=== PATIENT | male | born 1990 | race Caucasian/White ===

== ENCOUNTER 2016-12-27 09:37 | Emergency (ER) | payer MEDICAID ==
[2016-12-27] MEDS ORDERED: NS 1,000 ML IV ONE ×2 (09:51→09:52)
[2016-12-27] MEDS ORDERED: ONDANSETRON 4 MG/2 ML VIAL IVP ONE (09:51)
--- NOTE | 2016-12-27 09:53 | EDPHY ---
H & P Stated Complaint: n/v/d since yesterday Time Seen by Provider: 12/27/16 09:45 HPI/ROS: Chief Complaint: Nausea vomiting diarrhea, dehydration HPI: 26-year-old male presenting with onset of nausea vomiting and diarrhea yesterday afternoon. He has not been able to keep any fluids down. Has not had any abdominal pain. Is concerned that he is getting dehydrated. No fevers or chills. No chest pain shortness of breath. No other ill contacts. ROS: 10 point Review of Systems is negative except as noted in the HPI. PMH: Depression Medications: Effexor Allergies: No known drug allergies Social History: No smoking, occasional alcohol, occasional marijuana Family History: non-contributory Physical Exam: Gen: Awake, Alert, No Distress HEENT: Nose: no rhinorrhea Eyes: PERRLA, EOMI Mouth: Dry mucosa Neck: Supple, no JVD Chest: nontender, lungs clear to auscultation Heart: S1, S2 normal, no murmur Abd: Soft, non-tender, no guarding Back: no CVA tenderness, no midline tenderness Ext: no edema, non-tender Skin: no rash Neuro: CN II-XII intact, Sensation grossly intact, Strength 5/5 in bilateral upper and lower extremities - Personal History Current Tetanus/Diphtheria Vaccine: Yes - Medical/Surgical History Hx Asthma: No Hx Chronic Respiratory Disease: No Hx Diabetes: No Hx Cardiac Disease: No Hx Renal Disease: No Hx Cirrhosis: No Hx Alcoholism: No Hx HIV/AIDS: No Hx Splenectomy or Spleen Trauma: No Other PMH: denies - Social History Smoking Status: Never smoked Constitutional: Initial Vital Signs Temperature (C) 36.8 C 12/27/16 09:40 Heart Rate 78 12/27/16 09:40 Respiratory Rate 16 12/27/16 09:40 Blood Pressure 145/79 H 12/27/16 09:40 O2 Sat (%) 94 12/27/16 09:40 O2 Delivery Mode Room Air Allergies/Adverse Reactions: No Known Allergies Allergy (Unverified 12/27/16 09:40) Home Medications: Medication Instructions Recorded Effexor 12/27/16 Medical Decision Making ED Course/Re-evaluation: 26-year-old with dehydration secondary to a gastroenteritis. He has a soft benign abdomen. Will give him IV fluids and antiemetics. Reassess - Data Points Medications Given: Discontinued Medications Sodium Chloride (Ns) 1,000 mls @ 0 mls/hr IV ONCE ONE PRN Reason: Wide Open Stop: 12/27/16 09:52 Last Admin: 12/27/16 10:32 Dose: 1,000 mls Sodium Chloride (Ns) 1,000 mls @ 0 mls/hr IV ONCE ONE PRN Reason: Wide Open Stop: 12/27/16 09:53 Last Admin: 12/27/16 10:05 Dose: 1,000 mls Ondansetron HCl (Zofran) 4 mg IVP EDNOW ONE Stop: 12/27/16 09:52 Last Admin: 12/27/16 10:33 Dose: Not Given Departure - Departure Disposition: Home, Routine, Self-Care Clinical Impression: Acute gastroenteritis, Dehydration Condition: Good Instructions: Dehydration (ED), Gastroenteritis (ED) Additional Instructions: Follow up with primary care physician in 3-4 days if symptoms are not improving. Patient to drink plenty of clear liquids, avoid dairy products. You may take ondansetron as needed for nausea and vomiting. Return to the emergency department for increasing abdominal pain, uncontrolled vomiting, fevers, chills, or any other concerns. Referrals: Beverly Hurst, PAC [Primary Care Provider] - As per Instructions
[2016-12-27 11:06] VITALS: BP 157/85; PULSE 60; RESP 18; TEMP 97.5; O2SAT 95
== END 2016-12-27 11:25 | disposition home or self-care (01) ==
DX: K52.9 Noninfective gastroenteritis and colitis, unspecified (principal); E86.0 Dehydration

== ENCOUNTER 2017-06-22 15:06 | Emergency (ER) | payer MEDICAID ==
--- NOTE | 2017-06-22 15:43 | EDPHY ---
H & P Time Seen by Provider: 06/22/17 15:17 HPI/ROS: 26-year-old male presents complaining of crippling fatigue over the last 2 days , and today began to have lower back pain. He denies fever or chills. He states he has been exposed to mono, however he denies sore throat or swollen glands. He denies cough . He has a history of eczema however he denies current rash. No difficulty urinating, no dysuria, no penile discharge. He does admit to drinking more than 5 alcoholic drinks per day. Review of systems As per HPI General no fever no chills no weakness, positive fatigue HEENT no eye pain no eye discharge. No eye redness, no sore throat Respiratory no cough, no shortness of breath Cardiac no chest pain, no peripheral edema GI no abdominal pain, no diarrhea, no constipation, no nausea, no vomiting no flank pain, no hematuria, no dysuria Musculoskeletal positive myalgias, no joint pain Heme no easy bruising, no easy bleeding Endo no polyuria, no polydipsia Skin no rashes, no pruritus Neuro no syncope, no dizziness, no headaches Psych is no suicidal ideation, no homicidal ideation Past Medical/Surgical History: Heavy alcohol use Social History: Positive alcohol use, positive marijuana Smoking Status: Never smoked Physical Exam: 26-year-old male vital signs stable alert and oriented no acute distress nontoxic appearance afebrile HEENT atraumatic normocephalic, extraocular muscles intact, anicteric Oropharynx negative for erythema negative exudate, tolerating her own secretions Neck supple no meningismus, no adenopathy Lungs clear to auscultation bilaterally Heart regular rate and rhythm without murmur rub or gallop Abdomen nondistended normoactive bowel sounds soft nontender Back positive bilateral CVA tenderness, right greater than left CVA tenderness, no step-offs, no spinal tenderness Extremities no cyanosis clubbing or edema Neuro alert and oriented, no focal deficits Skin-no rash Constitutional: Initial Vital Signs Temperature (C) 37.0 C 06/22/17 15:17 Heart Rate 89 06/22/17 15:17 Respiratory Rate 18 06/22/17 15:17 Blood Pressure 129/94 H 06/22/17 15:17 O2 Sat (%) 96 06/22/17 15:17 O2 Delivery Mode Room Air Allergies/Adverse Reactions: No Known Allergies Allergy (Verified 06/22/17 15:17) Home Medications: Medication Instructions Recorded NK [No Known Home Meds] 06/22/17 Medical Decision Making ED Course/Re-evaluation: Patient seen and evaluated for fatigue, muscle pain of 2 days duration. Labs CPK normal Magnesium normal CMP normal CBC mildly elevated WBC with a normal differential Hemoglobin hematocrit platelets all within normal limits Monospot negative Patient given 1 L normal saline Impression Myalgias with fatigue of unknown etiology Possible early viral syndrome Plan Rest, drink plenty liquids, ibuprofen or acetaminophen as needed for pain Follow-up with your primary care physician Recommend cutting back on alcohol intake - Data Points Laboratory Results: Laboratory Results 06/22/17 15:50 06/22/17 15:50 06/22/17 06/22/17 06/22/17 16:29 16:00 15:50 WBC RBC Hgb Hct MCV MCH MCHC RDW Plt Count MPV Neut % (Auto) Lymph % (Auto) Chester % (Auto) Eos % (Auto) Baso % (Auto) Nucleat RBC Rel Count Absolute Neuts (auto) Absolute Lymphs (auto) Absolute Monos (auto) Absolute Eos (auto) Absolute Basos (auto) Absolute Nucleated RBC Immature Gran % Immature Gran # Sodium Potassium Chloride Carbon Dioxide Anion Gap BUN Creatinine Estimated GFR Glucose Calcium Magnesium 1.6 mg/dL mg/dL (1.6-2.3) Total Bilirubin AST ALT Alkaline Phosphatase Creatine Kinase Total Protein Albumin Urine Color YELLOW Urine Appearance CLEAR Urine pH 6.0 (5.0-7.5) Ur Specific [place] <= 1.005 (1.002-1.030) Urine Protein NEGATIVE (NEGATIVE) Urine Ketones NEGATIVE (NEGATIVE) Urine Blood NEGATIVE (NEGATIVE) Urine Nitrate NEGATIVE (NEGATIVE) Urine Bilirubin NEGATIVE (NEGATIVE) Urine Urobilinogen 0.2 EU EU (0.2-1.0) Ur Leukocyte Esterase NEGATIVE (NEGATIVE) Urine Glucose NEGATIVE (NEGATIVE) Monoscreen NEGATIVE (NEGATIVE) 06/22/17 06/22/17 15:50 15:50 WBC 13.21 10^3/uL H 10^3/uL (3.80-9.50) RBC 5.35 10^6/uL 10^6/uL (4.40-6.38) Hgb 16.9 g/dL g/dL (13.7-17.5) Hct 46.7 % % (40.0-51.0) MCV 87.3 fL fL (81.5-99.8) MCH 31.6 pg pg (27.9-34.1) MCHC 36.2 g/dL g/dL (32.4-36.7) RDW 12.3 % % (11.5-15.2) Plt Count 336 10^3/uL 10^3/uL (150-400) MPV 9.9 fL fL (8.7-11.7) Neut % (Auto) 68.2 % % (39.3-74.2) Lymph % (Auto) 22.2 % % (15.0-45.0) Chester % (Auto) 8.2 % % (4.5-13.0) Eos % (Auto) 0.5 % L % (0.6-7.6) Baso % (Auto) 0.5 % % (0.3-1.7) Nucleat RBC Rel Count 0.0 % % (0.0-0.2) Absolute Neuts (auto) 9.01 10^3/uL H 10^3/uL (1.70-6.50) Absolute Lymphs (auto) 2.93 10^3/uL 10^3/uL (1.00-3.00) Absolute Monos (auto) 1.08 10^3/uL H 10^3/uL (0.30-0.80) Absolute Eos (auto) 0.07 10^3/uL 10^3/uL (0.03-0.40) Absolute Basos (auto) 0.07 10^3/uL 10^3/uL (0.02-0.10) Absolute Nucleated RBC 0.00 10^3/uL 10^3/uL (0-0.01) Immature Gran % 0.4 % % (0.0-1.1) Immature Gran # 0.05 10^3/uL 10^3/uL (0.00-0.10) Sodium 139 mEq/L mEq/L (134-144) Potassium 3.9 mEq/L mEq/L (3.5-5.2) Chloride 101 mEq/L mEq/L (97-110) Carbon Dioxide 22 mEq/l mEq/l (22-31) Anion Gap 16 mEq/L mEq/L (8-16) BUN 12 mg/dL mg/dL (7-23) Creatinine 1.0 mg/dL mg/dL (0.7-1.3) Estimated GFR > 60 Glucose 110 mg/dL H mg/dL (70-100) Calcium 10.3 mg/dL mg/dL (8.5-10.4) Magnesium Total Bilirubin 1.0 mg/dL mg/dL (0.1-1.4) AST 42 IU/L IU/L (17-59) ALT 70 IU/L IU/L (21-72) Alkaline Phosphatase 57 IU/L IU/L (38-126) Creatine Kinase 101 IU/L IU/L (0-224) Total Protein 8.1 g/dL g/dL (6.3-8.2) Albumin 4.9 g/dL g/dL (3.5-5.0) Urine Color Urine Appearance Urine pH Ur Specific [place] Urine Protein Urine Ketones Urine Blood Urine Nitrate Urine Bilirubin Urine Urobilinogen Ur Leukocyte Esterase Urine Glucose Monoscreen Medications Given: Discontinued Medications Sodium Chloride (Ns) 1,000 mls @ 0 mls/hr IV ONCE ONE PRN Reason: Wide Open Stop: 06/22/17 15:45 Last Admin: 06/22/17 16:00 Dose: 1,000 mls Departure - Departure Disposition: Home, Routine, Self-Care Clinical Impression: Myalgia, Fatigue Condition: Good Instructions: Viral Syndrome (ED), Musculoskeletal Pain (ED), Fatigue (ED) Referrals: Beverly Hurst, PAC [Primary Care Provider] - As per Instructions
[2017-06-22] MEDS ORDERED: NS 1,000 ML IV ONE (15:44)
[2017-06-22 15:56] LABS: % IMMATURE GRANULYOCYTES 0.4 % (0.0-1.1); ABSOLUTE IMMATURE GRANULOCYTES 0.05 10^3/uL (0.00-0.10); ADD DIFF? NO; ADD MORPH? NO; ADD SCAN? NO; ATYPICAL LYMPHOCYTE FLAG 0 (0-99); FRAGMENT RBC FLAG 0 (0-99); HEMATOCRIT 46.7 % (40.0-51.0); HEMOGLOBIN 16.9 g/dL (13.7-17.5); LEFT SHIFT FLG 0 (0-99); LIPEMIA HEMOLYSIS FLAG 90 (0-99); MEAN CELL HEMOGLOBIN 31.6 pg (27.9-34.1); MEAN CELL HEMOGLOBIN CONCENTR. 36.2 g/dL (32.4-36.7); MEAN CELL VOLUME 87.3 fL (81.5-99.8); MEAN PLATELET VOLUME 9.9 fL (8.7-11.7); PLATELET CLUMPS FLAG 0 (0-99); PLATELET COUNT 336 10^3/uL (150-400); RED BLOOD CELL COUNT 5.35 10^6/uL (4.40-6.38); RED CELL DISTRIBUTION WIDTH 12.3 % (11.5-15.2)
[2017-06-22 16:04] LABS: COLOR YELLOW; LEUKOCYTE ESTERASE,URINE NEGATIVE (NEGATIVE); NITRITE,URINE NEGATIVE (NEGATIVE)
[2017-06-22 16:11] LABS: ALANINE AMINOTRANSFERASE 70 IU/L (21-72); ALBUMIN 4.9 g/dL (3.5-5.0); ALKALINE PHOSPHATASE 57 IU/L (38-126); ANION GAP 16 mEq/L (8-16); ASPARTATE AMINOTRANSFERASE 42 IU/L (17-59); CALCIUM 10.3 mg/dL (8.5-10.4); CARBON DIOXIDE 22 mEq/l (22-31); CHLORIDE 101 mEq/L (97-110); GLOMERULAR FILTRATION RATE > 60; GLUCOSE 110 mg/dL (70-100); POTASSIUM 3.9 mEq/L (3.5-5.2); SODIUM 139 mEq/L (134-144); TOTAL PROTEIN 8.1 g/dL (6.3-8.2)
[2017-06-22 17:59] VITALS: BP 132/86; PULSE 75; RESP 20; TEMP 98.1; O2SAT 95
== END 2017-06-22 17:59 | disposition home or self-care (01) ==
LOC: CED 15:06
DX: R53.83 Other fatigue (principal); M79.1 Myalgia
CPT/HCPCS: 80053-PO; 81003-PO; 82550-PO; 83735-PO; 85025-PO; 86308-PO